=== PATIENT | female | born 1990 | race Caucasian/White ===

== ENCOUNTER 2017-04-26 21:31 | Emergency (ER) | payer OTHER ==
[~2017-04-26] VITALS: Ht 160 cm; Wt 108.0 kg
[~2017-04-26 21:31] MED LIST: MACR100C PO; PRENCAP6 PO
[2017-04-26 21:33] VITALS: BP 164/88; PULSE 97; RESP 16; TEMP 98.6; O2SAT 99
[2017-04-26] MEDS ORDERED: oxyCODONE/ACETAMINOPHEN 5 MG/325 MG TAB PO ONE (22:00)
[2017-04-26] MEDS ORDERED: AMOXICILLIN 875 MG TAB PO ONE (22:00)
[2017-04-26] MEDS ORDERED: SULFAMETHOXAZOLE-TRIMETHOPRIM DS 800-160 MG TAB PO ONE (22:00)
--- NOTE | 2017-04-26 22:01 | PD ---
HPI Chief Complaint: ENT Complaint Time Seen by Provider: 21:47 Travel History International Travel<30 days: No Contact w/Intl Traveler<30days: No Traveled to known affect area: No History of Present Illness HPI Patient is a 27-year-old female presenting to emergency Department for evaluation of left preauricular swelling and pain. Patient states her symptoms started yesterday, she reports her pain as a 7 out of 10 which is what prompted the visit to the emergency department. She states it is sore and throbbing. Patient took ibuprofen at 2 PM significant relief of symptoms. She reports pressure in her ear as well. She denies any fever, chills, nausea, vomiting. She states that she has a dull headache secondary to the pain. Denies any neck pain. PFSH Past Medical History ADD: Yes ( A CHILD) ADHD: Yes Anxiety: Yes Cardiovascular Problems: Yes (SVT) Diminished Hearing: No Immunizations Current: Yes ?: Not LMP: 03/27/17 Past Surgical History Tonsillectomy: Yes Social History Alcohol Use: Yes (2 XS WEEKLY) Tobacco Use: No Substance Use: Yes (POT) Allergies-Medications (Allergen,Severity, Reaction): Coded Allergies: No Known Allergies (Verified , 04/26/17) Reported Meds & Prescriptions Reported Meds & Active Scripts Active Tramadol (Tramadol HCl) 50 Mg Tab 50 Mg PO Q4H PRN Bactrim DS (Sulfamethoxazole-Trimethoprim) 800-160 Mg Tab 1 Tab PO BID Amoxicillin 875 Mg Tab 875 Mg PO BID 10 Days Macrobid (Nitrofurantoin Macrocrystals) 100 Mg Cap 100 Mg PO BID 7 Days Reported 1 ( Multivitamins) Cap 1 Cap PO DAILY Review of Systems Except as stated in HPI: all other systems reviewed are Neg HENT: Positive: Earache Musculoskeletal: Positive: Edema Skin: Positive Other (PREAURICULAR SWELLING) Physical Exam Narrative GENERAL: Well-developed, well-nourished, alert female. Resting comfortably in no acute distress. SKIN: Warm and dry. Preauricular swelling on the right side moderately tender to palpation, no significant erythema noted. HEAD: Normocephalic. EYES: No scleral icterus. No injection or drainage. EARS: Bilateral pinnae and left external canal appears within normal limits. Mildly erythematous right external ear canal. No lesions noted. Bilateral tympanic membranes without erythema, dullness or perforation. NECK: Supple, trachea midline. No JVD or lymphadenopathy. CARDIOVASCULAR: Regular rate and rhythm without murmurs, gallops, or rubs. RESPIRATORY: Breath sounds equal bilaterally. No accessory muscle use. GASTROINTESTINAL: Abdomen soft, non-tender, nondistended. MUSCULOSKELETAL: No cyanosis, or edema. BACK: Nontender without obvious deformity. No CVA tenderness. Data Data Last Documented VS Vital Signs Date Time Temp Pulse Resp B/P (MAP) Pulse Ox O2 Delivery O2 Flow Rate FiO2 04/26/17 21:33 98.6 97 16 164/88 (113) 99 Room Air Orders Orders Amoxicillin (Trimox) (04/26/17 22:00) Sulfamet-Trimeth Ds 800-160 Mg (Bactrim (04/26/17 22:00) Oxycodone-Acetamin 5-325 Mg (Percocet (04/26/17 22:00) Ed Discharge Order (04/26/17 22:16) MDM Medical Decision Making Medical Screen Exam Complete: Yes Emergency Medical Condition: Yes Interpretation(s) Vital Signs Date Time Temp Pulse Resp B/P (MAP) Pulse Ox O2 Delivery O2 Flow Rate FiO2 04/26/17 21:33 98.6 97 16 164/88 (113) 99 Room Air Differential Diagnosis Erysipelas versus cellulitis versus otitis media versus otitis externa versus other Narrative Course Patient is a 27 year old female presenting to the emergency department for evaluation of right ear pain and edema to the preauricular area on the right. Patient's vital signs are stable. No obvious otitis media. There is mild edema to the right external ear canal. Patient was given amoxicillin, Bactrim and pain medication emergency department. To be treated for cellulitis at this time. She is encouraged to complete full course of antibiotics as prescribed, take medication as he denies directed for pain, follow-up with her primary doctor or return to emergency department for any new or worsening symptoms. Patient verbalized understanding of instructions. Patient stable for discharge. Diagnosis Primary Impression: Preauricular cellulitis Referrals: Primary Care Physician 3 days Patient Instructions: Cellulitis (ED), General Instructions Departure Forms: Tests/Procedures, Work Release Enter return to work date: Apr 28, 2017 Special Instructions: It is recommended the patient stay out of work on Saturday04/27/17. Additional Instructions: Complete full course of antibiotics as prescribed. Take pain medication as needed and as directed, do not drive or operate machinery. Follow-up with her primary doctor Return to emergency department for any new or worsening symptoms Med/Other Pt SpecificInfo: Prescription(s) given Scripts Tramadol (Tramadol) 50 Mg Tab 50 MG PO Q4H Y for PAIN, #12 TAB 0 Refills Prov: Concetta Kothari 04/26/17 Sulfamethoxazole-Trimethoprim (Bactrim DS) 800-160 Mg Tab 1 TAB PO BID for Infection, #20 TAB 0 Refills Prov: Concetta Kothari 04/26/17 Amoxicillin (Amoxicillin) 875 Mg Tab 875 MG PO BID for Infection for 10 Days, #20 TAB 0 Refills Prov: Concetta Kothari 04/26/17 Disposition: 01 DISCHARGE HOME Condition: Stable Concetta Kothari Apr 26, 2017 22:01
[2017-04-26] MEDS ORDERED: BACT800T5 PO (22:15)
[2017-04-26] MEDS ORDERED: AMOX875T PO (22:15)
[2017-04-26] MEDS ORDERED: TRAM50TA PO (22:15)
== END 2017-04-26 23:49 | disposition home or self-care (01) ==
LOC: NEPD 21:31
DX: H60.11 Cellulitis of right external ear (principal)
CPT/HCPCS: 99284

== ENCOUNTER 2017-04-30 21:46 | Emergency (ER) | payer OTHER ==
[~2017-04-30] VITALS: Ht 157.5 cm; Wt 105.0 kg
[~2017-04-30 21:46] MED LIST changes: +AMOX875T PO; +BACT800T5 PO; +TRAM50TA PO
[2017-04-30 21:48] VITALS: BP 139/87; PULSE 98; RESP 16; TEMP 97.5; O2SAT 99
--- NOTE | 2017-04-30 23:14 | PD ---
HPI Chief Complaint: ENT Complaint Time Seen by Provider: 23:08 Travel History International Travel<30 days: No Contact w/Intl Traveler<30days: No Traveled to known affect area: No History of Present Illness HPI The patient is a 27 year old female who presents to the [facility] emergency department with a history of developing right ear pain on Saturday. She denies doing any recent swimming. She reports that she has noted some clear drainage from her ear. She reports that the ears seemed to be swollen and the swelling seemed to be moving in front of her ear. She reports that she has a headache associated with it. The patient was seen in the emergency department on Saturday and was diagnosed with a cellulitis. She was prescribed tramadol, Bactrim, and amoxicillin. She reports that the swelling seems to have improved, however she continues to have a clear drainage. She reports that the tramadol is not helping with pain. She has had a subjective fever. She had n/v x1 yesterday at work. She has had nausea today. She denies having any diarrhea. On review of systems otherwise, she denies having any cough, nasal congestion or nasal discharge, postnasal drip, dental pain, swelling in her cheek related to chewing or eating, neck pain, chest pain, shortness of breath, abdominal pain, urinary symptoms, or neurologic symptoms. LMP March 27, 2017 PCP: None. [facility] Past Medical History Narrative Medical The patient's past medical history is significant for anxiety disorder, history of SVT. ADD: Yes ( A CHILD) ADHD: Yes Anxiety: Yes Cardiovascular Problems: Yes (SVT) Diminished Hearing: No Immunizations Current: Yes ?: Not LMP: 03/27/17 Past Surgical History Narrative Surgical The patient's past surgical history is significant for a tonsillectomy. Tonsillectomy: Yes Social History Alcohol Use: Yes (2 XS WEEKLY) Tobacco Use: No Substance Use: Yes (POTreportedly to help with anxiety) Allergies-Medications (Allergen,Severity, Reaction): Coded Allergies: No Known Allergies (Verified , 04/30/17) Reported Meds & Prescriptions Reported Meds & Active Scripts Active [cortisporin otic] 4 Drop RIGHT EAR Q6HR 10 Days EC-Naprosyn (Naproxen) 500 Mg Tabdr 500 Mg PO BID PRN Tramadol (Tramadol HCl) 50 Mg Tab 50 Mg PO Q4H PRN Bactrim DS (Sulfamethoxazole-Trimethoprim) 800-160 Mg Tab 1 Tab PO BID Amoxicillin 875 Mg Tab 875 Mg PO BID 10 Days Macrobid (Nitrofurantoin Macrocrystals) 100 Mg Cap 100 Mg PO BID 7 Days Reported 1 ( Multivitamins) Cap 1 Cap PO DAILY Review of Systems Except as stated in HPI: all other systems reviewed are Neg General / Constitutional: Positive: Fever Eyes: No: Visual changes HENT: Positive: Headaches, Ear Discharge, Earache, No: Rhinorrhea, Congestion, Neck Stiffness, Neck Pain, Gingival Bleeding, Dental Difficulties Cardiovascular: No: Chest Pain or Discomfort Respiratory: No: Shortness of Breath Gastrointestinal: Positive: Nausea, No: Vomiting, Diarrhea, Abdominal Pain, Changes in Bowel Habits, Indigestion, Loss of Appetite Genitourinary: No: Dysuria Musculoskeletal: No: Pain Skin: No Rash Neurologic: No: Weakness, Focal Abnormalities, Change in Mentation, Slurred Speech, Sensory Disturbance Psychiatric: No: Depression Endocrine: No: Polydipsia Hematologic/Lymphatic: No: Easy Bruising Physical Exam Narrative General: The patient is a well-developed well-nourished female in no acute distress. Head and Neck exam: Head is normocephalic atraumatic. No visible swelling is noted. The patient has no facial erythema. The patient has no swelling of her parotid gland or tenderness on palpation at that site. Eyes: EOMI, pupils are equal round and reactive to light. Ears: The patient has tenderness on palpation over her tragus on the right side. The patient has swelling of the canal noted with white discharge in the canal. The patient has tenderness on palpation inside the canal. Because of the debris in her canal am not able to fully visualize her tympanic membrane although what is visualized does not appear to be erythematous. Nose: Midline septum with pink mucous membranes Mouth: Dentition unremarkable. No dental pain with palpation. Moist mucus membranes. Posterior oropharynx is not erythematous. No tonsillar hypertrophy. Uvula midline. Airway patent. Neck: No palpable lymphadenopathy. No nuchal rigidity. No thyromegaly. Cardiovascular: Regular rate and rhythm without murmurs, gallops, or rubs. Lungs: Clear to auscultation bilaterally. No wheezes, rhonchi, or rales. Abdomen: Soft, without tenderness to palpation in all 4 quadrants of the abdomen. No guarding, rebound, or rigidity. Normal bowel sounds are audible. No tenderness on palpation of McBurney's point. Extremities: No clubbing, cyanosis, or edema. No calf tenderness on palpation. Back: No costovertebral angle tenderness to palpation. Neurologic Exam: Grossly nonfocal. Skin Exam: No rash noted. Intact skin that is warm and dry. Data Data Last Documented VS Vital Signs Date Time Temp Pulse Resp B/P (MAP) Pulse Ox O2 Delivery O2 Flow Rate FiO2 04/30/17 21:48 97.5 98 16 139/87 (104) 99 Room Air Orders Orders Ear Irrigation (04/30/17 23:26) Ketorolac Inj (Toradol Inj) (04/30/17 23:30) [id number]-Fp Otic Susp (Cortispo (05/01/17 00:00) Naproxen (Naprosyn) (05/01/17 00:15) MDM Medical Decision Making Medical Screen Exam Complete: Yes Emergency Medical Condition: Yes Medical Record Reviewed: Yes Differential Diagnosis Sialadenitis, versus salivary gland stone, versus lymphadenopathy, versus TMJ, versus otitis externa, versus cellulitis Narrative Course During the course of the patients emergency department visit, the patients history, examination, and differential diagnosis were reviewed with the patient. The patient's electronic medical record was reviewed. The patient was initially provided irrigation of the right ear canal for better visualization of the patient's tympanic membrane. The patient will then have Cortisporin otic drops placed in the right ear. The patient will be discharged home with a prescription for Naprosyn and Cortisporin otic eardrops. The patient is resting comfortably and feels better, is alert and in no distress. The patients results and examination findings were discussed with the patient. The repeat examination is unremarkable and benign. The history, exam, diagnostic testing, and current condition do not suggest any significant pathology to warrant further testing, continued ED treatment, admission, or surgical evaluation at this point. The vital signs have been stable. The patient does not have uncontrollable pain, intractable vomiting, or other significant symptoms. The patient's condition is stable and appropriate for discharge. The patient will pursue further outpatient evaluation with a primary care physician or other designated or consulting physician as indicated in the discharge instructions. The patient expressed understanding and was agreeable with this plan. Diagnosis Primary Impression: Otitis externa Qualified Codes: H60.501 - Unspecified acute noninfective otitis externa, right ear Referrals: [facility] 1 week Patient Instructions: General Instructions, Otitis Externa (ED) Additional Instructions: Keep your ears dry until the infection has resolved. Use ear plugs when washing her hair in the shower. Med/Other Pt SpecificInfo: Prescription(s) given Scripts [cortisporin otic] No Conflict Check 4 DROP RIGHT EAR Q6HR for 10 Days Prov: Davina Ramirez MD 05/01/[address] (EC-Naprosyn) 500 Mg Tabdr 500 MG PO BID Y for PAIN GREATER THAN 5, #10 TAB 0 Refills Prov: Davina Ramirez MD 05/01/17 Disposition: 01 DISCHARGE HOME Condition: Stable Davina Ramirez MD Apr 30, 2017 23:14
[2017-04-30] MEDS ORDERED: KETOROLAC TROMETHAMINE 60 MG/2 ML (IM) VIAL IM ONE (23:30)
[2017-05-01] MEDS ORDERED: NEOMYCIN/POLYMYXIN/HYDROCORT OTIC SUSP 10 ML BTL RIGHT EAR ONE
[2017-05-01] MEDS ORDERED: EC-N500T PO (00:11)
[2017-05-01] MEDS ORDERED: cortisporin otic RIGHT EAR (00:11)
[2017-05-01] MEDS ORDERED: NAPROXEN 500 MG TAB PO ONE (00:15)
== END 2017-05-01 00:38 | disposition home or self-care (01) ==
LOC: NEPC 21:46
DX: H60.91 Unspecified otitis externa, right ear (principal); R51 Headache; R11.0 Nausea; F41.9 Anxiety disorder, unspecified; F90.9 Attention-deficit hyperactivity disorder, unspecified type; I47.1 Supraventricular tachycardia; Z79.899 Other long term (current) drug therapy
CPT/HCPCS: 99283